=== PATIENT | male | born 1970 | race African-American/Black ===

== ENCOUNTER 2016-10-26 20:00 | Emergency (ER) | payer OTHER ==
[2016-10-26 20:09] VITALS: BP 99/56; PULSE 57; RESP 18; TEMP 97.9
--- NOTE | 2016-10-26 20:17 | ED ---
Lower Extremity Injury HPI - General Chief Complaint: Extremity Injury, Lower Stated Complaint: R leg pain Time Seen by Provider: 10/26/16 20:10 Source: patient, RN notes reviewed Mode of arrival: ambulatory Limitations: no limitations - History of Present Illness Initial Comments: 46-year-old male presents emergency Department chief complaint of right reyez pain. Patient states about 2 weeks ago he jumped over a fence since she's had pain to the right reyez area. Patient states he is relieved that he is chronically of some pain and some tenderness to the touch. Patient states there is no other injury from the incident. Patient states he is able to walk with this. Patient states he was concerned due to the symptoms he thought that he should be evaluated. Patient denies any recent fever, chills, shortness of breath, chest pain, back pain, abdominal pain, nausea vomiting, numbness or tingling, dysuria or hematuria, constipation or diarrhea, headaches or visual changes, or any other current symptoms. - Related Data Previous Rx's Medication Instructions Recorded Ibuprofen [Motrin] 600 mg PO Q6HR PRN #20 tab 10/26/16 Allergies Allergy/AdvReac Type Severity Reaction Status Date / Time No Known Allergies Allergy Verified 10/26/16 20:19 Review of Systems ROS Statement: Those systems with pertinent positive or pertinent negative responses have been documented in the HPI. ROS Other: All systems not noted in ROS Statement are negative. Past Medical History Past Medical History: No Reported History Additional Past Medical History / Comment(s): low BP History of Any Multi-Drug Resistant Organisms: None Reported Past Surgical History: Orthopedic Surgery Additional Past Surgical History / Comment(s): decompressed skull fx, left hip plate and screw, pelvic fx Past Psychological History: No Psychological Hx Reported Smoking Status: Never smoker Past Alcohol Use History: None Reported Past Drug Use History: Marijuana General Exam - General Exam Comments Initial Comments: General: The patient is awake and alert, in no distress, and does not appear acutely ill. Neck: The neck is supple, there is no tenderness. Cardiovascular: There is a regular rate and rhythm. No murmur, rub or gallop is appreciated. Respiratory: Lungs are clear to auscultation, respirations are non-labored, breath sounds are equal. No wheezes, stridor, rales, or rhonchi. Musculoskeletal: sensation intact with 2+ pulses throughout the right lower side. Range of motion of the right ankle and right knee. No proximal tib-fib tenderness. Patient does have some tenderness to palpation along the anterior tibia of the right foot. 5 out of 5 muscle strength. No swelling. Neurological: CN II-XII intact, There are no obvious motor or sensory deficits. Coordination appears grossly intact. Speech is normal. Skin: Skin is warm and dry and no rashes or lesions are noted. Psychiatric: Normal mood and affect. Limitations: no limitations Course Vital Signs 10/26/16 20:04 Temperature 97.9 F Pulse Rate 57 L Respiratory 18 Rate Blood Pressure 99/56 O2 Sat by Pulse 97 Oximetry Medical Decision Making - Medical Decision Making 46-year-old male presents for right anterior reyez pain that is inquiring for about 2 weeks. at this time x-rays reviewed and negative. We discussed ice Motrin Tylenol. We will give him follow-up dorsal. We did start him on anti- inflammatories. We discussed all the patient's questions. He stated he understood and is given the plan. He will be discharged. - Radiology Data Radiology results: report reviewed, image reviewed Disposition Clinical Impression: Pain in right reyez Disposition: HOME SELF-CARE Condition: Stable Instructions: Contusion in Adults (ED) Additional Instructions: Please use medication as discussed. Please follow up with family doctor if symptoms have not improved over the next two days. Please return to the emergency room if your symptoms increase or worsen or for any other concerns. Prescriptions: Ibuprofen [Motrin] 600 mg PO Q6HR PRN #20 tab PRN Reason: Pain Referrals: Freddy Mancia DO [Doctor of Osteopathic Medicine] - 1-2 days Time of Disposition: 20:56
--- NOTE | 2016-10-26 20:52 | XR ---
Right leg HISTORY: Trauma and pain 2 views of the right leg on 4 images No comparisons Bone mineralization, joint spaces and alignment are maintained IMPRESSION: No fracture or dislocation.
== END 2016-10-26 21:08 | disposition home or self-care (01) ==
LOC: EC 20:00
DX: M79.661 Pain in right lower leg (principal); Z98.890 Other specified postprocedural states
CPT/HCPCS: 99283